=== PATIENT | female | born 1980 | race Caucasian/White ===

== ENCOUNTER 2022-08-06 07:14 | Day surgery (SDC) | payer BC ==
[2022-08-05 09:17] LABS: Absolute Lymphocytes (CBC) 1.5 K/uL (0.7-4.9); Hematocrit 39.6 % (36.0-45.0); Lymphocytes % 30.1 % (15.3-44.8); MCV 95.9 fL (80-100); MPV 7.4 fL (7.6-11.3); RBC Red Blood Cell Count 4.13 M/uL (3.86-4.86)
[2022-08-05 09:28] LABS: Potassium 4.1 mEq/L (3.5-5.1)
[2022-08-06] MEDS ORDERED: CEFAZOLIN SODIUM 1 GM/VIAL ONE (07:38)
[2022-08-06] MEDS: Ringers Lactate 1,000 ML IV ONE ×2 (07:45→08:00)
[2022-08-06] MEDS ORDERED: LIDOCAINE 2% MPF 5 ML VIAL ONE (08:09)
[2022-08-06] MEDS ORDERED: MIDAZOLAM HCL 2 MG/2 ML INJ ONE (08:09)
[2022-08-06] MEDS ORDERED: propofoL 200 MG/20 ML VIAL IV ONE (08:09)
[2022-08-06] MEDS ORDERED: FENTANYL CITR 100 MCG/2 ML ONE (08:09)
[2022-08-06] MEDS: BUPIVACAINE 0.5% PF 10 ML VIAL ONE ×2 (08:11→09:00)
[2022-08-06] MEDS ORDERED: ONDANSETRON 4 MG/2 ML VIAL ONE (08:11)
[2022-08-06] MEDS ORDERED: dexAMETHasone 4 MG/ML VIAL ONE (09:03)
--- NOTE | 2022-08-06 09:35 | P.OP ---
Date of Service: 08/06/22 Preop diagnosis: Chest wall mass Postop diagnosis: Inflamed chest wall mass Procedure performed: Wide excision chest wall mass 5 x 2 cm with layered closure Surgeon: Carlos Jimenez MD Clearance Representative: None Estimated blood loss: Minimal Specimen: Pus for C&S and cyst Findings: As above Anesthesia: General Complications: None Drains: None Fluids and blood products: Nonapplicable Disposition: Recovery room Operative note: Patient brought to the OR and placed in supine position. General anesthesia begun. Patient prepped and draped in the usual sterile fashion. Marcaine 0.5% apply locally for postop pain control. 15 blade used to make a 5 x 2 cm incision to include the punctum of the cyst. Subcutaneous tissue divided and the entire cyst excised in total and sent to pathology as specimen prior to the incision patient had some pus draining out of the punctum. The pus was cultured. Wound irrigated and bleeding controlled cautery. Flaps created. 2-0 chromic used to approximate subcutaneous tissue. And 4 nylon used to loosely close the skin. Sterile dressing applied. Patient awakened and taken to recovery room in good general condition. CC: Dr. Gonzalez'dinorah's office
[2022-08-06] MEDS: HYDROMORPHONE HCL 1 MG/ML INJ ONE ×2 (09:56→10:04)
[2022-08-06] MEDS ORDERED: TRAMADOL HCL 50 MG TAB PO PRN (10:00)
[2022-08-06 10:08] VITALS: O2SAT 100
[2022-08-06] MEDS ORDERED: TRAMADOL HCL 50 MG TAB ONE (10:36)
[2022-08-06 10:51] VITALS: BP 126/63; TEMP 97
== END 2022-08-06 11:25 | disposition home or self-care (01) ==
LOC: OR 07:14
PROVIDERS: ATTEND Surgery
PROC: 0WB80ZZ Excision of Chest Wall, Open Approach (ICD-10-PCS; principal; 2022-08-06 08:30)
DX: L72.0 Epidermal cyst (principal); J45.909 Unspecified asthma, uncomplicated; G35 Multiple sclerosis
CPT/HCPCS: 87070; 85025; 80048; 36415; 87205 ×2; 81025; 88304; 87075; 11406; J2704; J1100; J2001; J2250; J3010; J1170; J2405; J7120; J0690

== ENCOUNTER 2022-11-24 09:01 | Emergency (ER) | payer BC ==
[2022-11-24] MEDS ORDERED: IBUPROFEN 200 MG TAB PO ONE (10:09)
[2022-11-24] MEDS ORDERED: HYDROCODONE/APAP 10/325 TAB ONE (10:09)
[2022-11-24] MEDS ORDERED: IBUPROFEN 400 MG TAB ONE (10:10)
--- NOTE | 2022-11-24 10:33 | EDPHYS ---
Physician Documentation [facility] Name: Ashely Rodriguez Age: 42 yrs Sex: Female : 1980 Arrival Date: 11/24/2022 Time: 09:01 Bed 15 Private MD: ED Physician Rashad Jaramillo HPI: 11/24 09:59 This 42 yrs old Female presents to ER via Ambulatory with complaints of Fall gayathri Injury. 09:59 Details of fall: The patient fell from an upright position, while standing. Onset: The gayathri symptoms/episode began/occurred 1 day(s) ago. Associated injuries: The patient sustained anterior aspect of left shoulder, left bicep, left antecubital area, posterior aspect of left shoulder, left tricep and left elbow, decreased range of motion, painful injury. Severity of symptoms: At their worst the symptoms were moderate, in the emergency department the symptoms are unchanged. Historical: - Allergies: 09:30 Sulfa (Sulfonamide Antibiotics); mb9 09:30 caffeine; mb9 - Home Meds: 09:30 Vyvanse oral [Active]; mb9 - PMHx: 09:30 Multiple sclerosis; mb9 - Immunization history:: Adult Immunizations up to date. - Social history:: Smoking status: Patient denies any tobacco usage or history of. - Family history:: not pertinent. ROS: 09:59 Constitutional: Negative for fever, chills, and weight loss, Eyes: Negative for injury, gayathri pain, redness, and discharge, ENT: Negative for injury, pain, and discharge, Neck: Negative for injury, pain, and swelling, Cardiovascular: Negative for chest pain, palpitations, and edema, Respiratory: Negative for shortness of breath, cough, wheezing, and pleuritic chest pain, Abdomen/GI: Negative for abdominal pain, nausea, vomiting, diarrhea, and constipation, Back: Negative for injury and pain, : Negative for injury, bleeding, discharge, and swelling, Skin: Negative for injury, rash, and discoloration, Neuro: Negative for headache, weakness, numbness, tingling, and seizure, Psych: Negative for depression, anxiety, suicide ideation, homicidal ideation, and hallucinations, Allergy/Immunology: Negative for hives, rash, and allergies, Endocrine: Negative for neck swelling, polydipsia, polyuria, polyphagia, and marked weight changes, Hematologic/Lymphatic: Negative for swollen nodes, abnormal bleeding, and unusual bruising. 09:59 MS/extremity: Positive for abrasion, decreased range of motion, pain, tenderness, of the anterior aspect of left shoulder, left bicep, left antecubital area, posterior aspect of left shoulder, left tricep and left elbow. Exam: 09:59 Constitutional: This is a well developed, well nourished patient who is awake, alert, gayathri and in no acute distress. Head/Face: Normocephalic, atraumatic. Eyes: Pupils equal round and reactive to light, extra-ocular motions intact. Lids and lashes normal. Conjunctiva and sclera are non-icteric and not injected. Cornea within normal limits. Periorbital areas with no swelling, redness, or edema. ENT: Nares patent. No nasal discharge, no septal abnormalities noted. Tympanic membranes are normal and external auditory canals are clear. Oropharynx with no redness, swelling, or masses, exudates, or evidence of obstruction, uvula midline. Mucous membranes moist. Neck: Trachea midline, no thyromegaly or masses palpated, and no cervical lymphadenopathy. Supple, full range of motion without nuchal rigidity, or vertebral point tenderness. No Meningismus. Chest/axilla: Normal chest wall appearance and motion. Nontender with no deformity. No lesions are appreciated. Cardiovascular: Regular rate and rhythm with a normal S1 and S2. No gallops, murmurs, or rubs. Normal PMI, no JVD. No pulse deficits. Respiratory: Lungs have equal breath sounds bilaterally, clear to auscultation and percussion. No rales, rhonchi or wheezes noted. No increased work of breathing, no retractions or nasal flaring. Abdomen/GI: Soft, non-tender, with normal bowel sounds. No distension or tympany. No guarding or rebound. No evidence of tenderness throughout. Back: No spinal tenderness. No costovertebral tenderness. Full range of motion. Skin: Warm, dry with normal turgor. Normal color with no rashes, no lesions, and no evidence of cellulitis. Neuro: Awake and alert, GCS 15, oriented to person, place, time, and situation. Cranial nerves II-XII grossly intact. Motor strength 5/5 in all extremities. Sensory grossly intact. Cerebellar exam normal. Normal gait. Psych: Awake, alert, with orientation to person, place and time. Behavior, mood, and affect are within normal limits. 09:59 Musculoskeletal/extremity: Extremities: grossly normal except: noted in the anterior aspect of left shoulder, left bicep, left antecubital area, posterior aspect of left shoulder, left tricep and left elbow: contusion, decreased ROM, ROM: intact in all extremities, limited active range of motion, limited passive range of motion, limited active range of motion due to pain, limited passive range of motion due to pain, Circulation is intact in all extremities. Sensation intact. Compartment Syndrome exam of affected extremity: is normal. Vital Signs: 09:29 BP 139 / 89; Pulse 79; Resp 16; Temp 98; Pulse Ox 95% ; Weight 86.18 kg; Height 5 ft. 1 mb9 in. ; 11:08 BP 132 / 78; Pulse 74; Resp 16; Pulse Ox 99% ; ko1 09:29 Body Mass Index 35.90 (86.18 kg, 154.94 cm) 9 MDM: 09:04 Patient medically screened. [facility] 09:59 Differential diagnosis: contusion, fracture, multiple trauma, sprain, strain. Data [facility] reviewed: vital signs, nurses notes, radiologic studies, plain films. Consideration of Admission/Observation Escalation of care including admission/observation considered. I considered the following discharge prescriptions or medication management in the emergency department Medications were administered in the Emergency Department. See MAR. Test considered but Not performed: Labs: no labs. Care significantly affected by the following chronic conditions: MS. Counseling: I had a detailed discussion with the patient and/or guardian regarding: the historical points, exam findings, and any diagnostic results supporting the discharge/admit diagnosis, radiology results, the need for outpatient follow up, for definitive care, a family practitioner, a orthopedic surgeon. 11/24 09:56 Order name: Elbow Left 3 View XRAY [facility] 11/24 09:56 Order name: Humerus Left XRAY [facility] 11/24 09:56 Order name: Ice pack; Complete Time: 09:57 gayathri 11/24 10:18 Order name: Sling; Complete Time: 11:07 gayathri Administered Medications: 10:03 Drug: Ibuprofen PO 600 mg Route: PO; ko1 10:03 Drug: Nineveh PO 10 mg-325 mg 1 tabs Route: PO; ko1 Disposition Summary: 11/24/22 10:33 Discharge Ordered Location: Home [facility] Problem: new gayathri Symptoms: have improved gayathri Condition: Stable gayathri Diagnosis - Fall on same level, unspecified gayathri - Contusion of left elbow gayathri - Contusion of left shoulder gayathri Followup: gayathri - With: Private Physician - When: 2 - 3 days - Reason: Recheck today's complaints, Continuance of care, Re-evaluation by your physician Followup: gayathri - With: Sean Gaines MD - When: 2 - 3 days - Reason: Recheck today's complaints, Continuance of care, Re-evaluation by your physician Discharge Instructions: - Discharge Summary Sheet gayathri - Fall Prevention in the Home, Adult gayathri - RICE Therapy for Routine Care of Injuries gayathri - Elbow Contusion gayathri - RICE Therapy for Routine Care of Injuries, [id number] gayathri - Fall Prevention in the Home, Adult, [id number] gayathri - Elbow Contusion, [id number] gayathri Forms: - Medication Reconciliation Form [facility] - Thank You Letter gayathri - Antibiotic Education gayathri - Prescription Opioid Use gayathri - Patient Portal Instructions [facility] - Leadership Thank You Letter [facility] Prescriptions: - Diclofenac Sodium 75 mg Oral tablet,delayed release (DR/EC) - take 1 tablet by ORAL route 2 times per day; 20 tablet; Refills: 0, Product gayathri Selection Permitted Signatures: Dispatcher [employer] Rsahad Viveros MD MD cha Oliver, Kathy, RN RN ko1 Elisabet Eddy RN RN mb9 Corrections: (The following items were deleted from the chart) 09:31 09:30 Allergies: Caffeine-Sodium Benzoate; mb9 mb9
--- NOTE | 2022-11-24 10:33 | ER ---
Nurse's Notes [facility] Name: Ashely Rodriguez Age: 42 yrs Sex: Female : 1980 Arrival Date: 11/24/2022 Time: 09:01 Bed 15 Private MD: Diagnosis: Fall on same level, unspecified;Contusion of left elbow;Contusion of left shoulder Presentation: 11/24 09:29 Chief complaint: Patient states: MECHANICAL FALL LAST PM, NOW WITH LUE, LLE PAIN. mb9 Coronavirus screen: At this time, the client does not indicate any symptoms associated with coronavirus-19. Ebola Screen: No symptoms or risks identified at this time. Initial Sepsis Screen: Does the patient meet any 2 criteria? No. Patient's initial sepsis screen is negative. Does the patient have a suspected source of infection? No. Patient's initial sepsis screen is negative. Risk Assessment: Do you want to hurt yourself or someone else? Patient reports no desire to harm self or others. Onset of symptoms is unknown. 09:29 Method Of Arrival: Ambulatory mb9 09:29 Acuity: ION 3 mb9 Historical: - Allergies: 09:30 Sulfa (Sulfonamide Antibiotics); mb9 09:30 caffeine; mb9 - Home Meds: 09:30 Vyvanse oral [Active]; mb9 - PMHx: 09:30 Multiple sclerosis; mb9 - Immunization history:: Adult Immunizations up to date. - Social history:: Smoking status: Patient denies any tobacco usage or history of. - Family history:: not pertinent. Screenin:45 [facility] ED Fall Risk Assessment (Adult) History of falling in the last 3 months, ko1 including since admission Yes- single mechanical fall (1 pt) Confusion or Disorientation No (0 pts) Intoxicated or Sedated No (0 pts) Impaired Gait No (0 pts) Mobility Assist Device Used No (0 pt) Altered Elimination No (0 pt) Score/Fall Risk Level 0 - 2 = Low Risk Oriented to surroundings, Maintained a safe environment, Educated pt \T\ family on fall prevention, incl call for assistance when getting out of bed, Assessed \T\ reinforced patient's understanding of fall precautions, Provided non-skid footwear, Hourly rounding (assess needs \T\ fall precautionary measures) done, Used ambulatory aids as needed (educated on \T\ assisted with), Used gait belt as appropriate. Abuse screen: Denies threats or abuse. Denies injuries from another. Nutritional screening: No deficits noted. Tuberculosis screening: No symptoms or risk factors identified. Assessment: 09:45 General: Appears in no apparent distress. uncomfortable, Behavior is calm, cooperative, ko1 appropriate for age. Pain: Complains of pain in anterior aspect of left shoulder, left bicep, posterior aspect of left shoulder and left tricep, left hip and leg. Neuro: No deficits noted. Cardiovascular: No deficits noted. Respiratory: No deficits noted. GI: No deficits noted. : No deficits noted. EENT: No deficits noted. Derm: No deficits noted. Musculoskeletal: Reports pain in left upper arm and left leg. Vital Signs: 09:29 BP 139 / 89; Pulse 79; Resp 16; Temp 98; Pulse Ox 95% ; Weight 86.18 kg; Height 5 ft. 1 mb9 in. ; 11:08 BP 132 / 78; Pulse 74; Resp 16; Pulse Ox 99% ; ko1 09:29 Body Mass Index 35.90 (86.18 kg, 154.94 cm) 9 ED Course: 09:03 Patient arrived in ED. rg4 09:04 Rashad Jaramillo MD is Attending Physician. gayathri 09:30 Triage completed. mb9 09:36 Grazyna Flor, RN is Primary Nurse. ko1 09:45 Patient has correct armband on for positive identification. Bed in low position. Call ko1 light in reach. Side rails up X 1. Provided Education on: NA. Pulse ox on. NIBP on. Door closed. Noise minimized. Warm blanket given. 09:45 Patient placed in an exam room, on a stretcher, Patient notified of wait time. ko1 10:00 Affected limb iced. ko1 10:13 Elbow Left 3 View XRAY In Process Unspecified. EDMS 10:13 Humerus Left XRAY In Process Unspecified. EDMS 10:31 Sean Gaines MD is Referral Physician. gayathri 11:08 No provider procedures requiring assistance completed. Patient did not have IV access ko1 during this emergency room visit. Sling applied to left arm. 11:08 Wound care: ice pack applied. ko1 Administered Medications: 10:03 Drug: Ibuprofen PO 600 mg Route: PO; ko1 10:03 Drug: Lockridge PO 10 mg-325 mg 1 tabs Route: PO; ko1 Medication: 11:08 VIS not applicable for this client. ko1 Outcome: 10:33 Discharge ordered by . gayathri 11:08 Discharged to home ambulatory, with family. ko1 11:08 Condition: stable 11:08 Discharge instructions given to patient, family, Instructed on discharge instructions, follow up and referral plans. medication usage, Demonstrated understanding of instructions, follow-up care, medications, Prescriptions given X 1. 11:21 Patient left the ED. ko1 Signatures: Dispatcher [employer] [facility] Rashad Jaramillo MD MD cha Garcia, Rubi rg4 Grazyna Flor RN RN ko1 Elisabet Eddy RN RN mb9 Corrections: (The following items were deleted from the chart) 09:31 09:30 Allergies: Caffeine-Sodium Benzoate; [email or web address] mb9
--- NOTE | 2022-11-24 11:00 | RAD REPORT ---
EXAM DESCRIPTION: RAD - Humerus Left - 11/24/2022 10:12 am CLINICAL HISTORY: PAIN COMPARISON: No comparisons TECHNIQUE: Left Humerus, 3 views. FINDINGS: No fracture is identified. There is no dislocation or periosteal reaction noted. No forei gn body or other soft tissue abnormality. IMPRESSION: Negative left humerus examination.
--- NOTE | 2022-11-24 11:01 | RAD REPORT ---
EXAM DESCRIPTION: RAD - Elbow Left 3 View - 11/24/2022 10:12 am CLINICAL HISTORY: PAIN COMPARISON: No comparisons TECHNIQUE: Left elbow, 3 views. FINDINGS: No fracture is identified. No elevated posterior fat pad to suggest an effusion. There is no dislocation or periosteal reaction noted. No foreign body or other soft tissue abnormalit y. IMPRESSION: Negative left elbow examination.
[2022-11-24 11:25] VITALS: TEMP 98
[2022-11-24 11:26] VITALS: BP 132/78; O2SAT 99
== END 2022-11-24 11:21 | disposition home or self-care (01) ==
LOC: ER 09:01
DX: S40.012A Contusion of left shoulder, initial encounter (principal); S50.02XA Contusion of left elbow, initial encounter; W18.30XA Fall on same level, unspecified, initial encounter; Z88.2 Allergy status to sulfonamides; Z91.018 Allergy to other foods

== ENCOUNTER 2023-03-08 07:10 | Day surgery (SDC) | payer BC ==
[2023-02-24 11:11] LABS: Absolute Lymphocytes (CBC) 1.5 K/uL (0.7-4.9); Hematocrit 41.7 % (36.0-45.0); Lymphocytes % 22.8 % (15.3-44.8); MCV 98.1 fL (80-100); MPV 7.8 fL (7.6-11.3); Platelets 283 thou/uL (152-406); RBC Red Blood Cell Count 4.26 M/uL (3.86-4.86)
[2023-02-24 11:17] LABS: Protime INR 0.99
--- NOTE | 2023-02-24 11:38 | RAD REPORT ---
EXAM DESCRIPTION: RAD - Chest Pa And Lat (2 Views) - 02/24/2023 11:12 am CLINICAL HISTORY: pre op pending ureteroscopy, laser litho, stent pl COMPARISON: Abdomen 1 View (KUB) dated 05/21/2021 FINDINGS: Lines: None. Lungs: No evidence of edema or pneumonia. Pleural: No significant pleural effusions or pneumothorax. Cardiac: The heart size is within normal limits. Mediastinum: Within normal limits. Bones: No acute fractures. Other: None IMPRESSION: No acute cardiopulmonary disease.
--- NOTE | 2023-02-25 14:25 | EKG ---
Test Date: 2023-02-24 Test Time: 11:39:21 Creative Writing Teacher: CG MEASUREMENT RESULTS: Intervals: Rate: 73 AK: 138 QRSD: 80 QT: 398 QTc: 438 Ortley: P: 53 AK: 138 QRS: 62 T: 60 INTERPRETIVE STATEMENTS: Normal sinus rhythm with sinus arrhythmia Possible Left atrial enlargement Borderline ECG No previous ECG available for comparison Electronically Signed On 02-25-23 14:22:29 MANAGER MATH by Troy Easton
[2023-03-08] MEDS ORDERED: Ringers Lactate 1,000 ML IV ONE (07:32)
[2023-03-08] MEDS ORDERED: AMPICILLIN SODIUM 2 GM/VIAL VIAL ONE (07:53)
[2023-03-08] MEDS ORDERED: LIDOCAINE 1% MPF 5 ML VIAL ONE (07:55)
[2023-03-08] MEDS ORDERED: propofoL 200 MG/20 ML VIAL IV ONE (07:55)
[2023-03-08] MEDS ORDERED: FENTANYL CITR 100 MCG/2 ML ONE (07:55)
[2023-03-08] MEDS ORDERED: MIDAZOLAM HCL 2 MG/2 ML INJ ONE (07:56)
[2023-03-08] MEDS ORDERED: ONDANSETRON 4 MG/2 ML VIAL ONE (07:59)
[2023-03-08] MEDS ORDERED: dexAMETHasone 10 MG/ML VIAL ONE (07:59)
[2023-03-08] MEDS ORDERED: Gentamicin Inj 200 MG in NA CHLORIDE 0.9% 100 ML IVPB ONE (08:00)
[2023-03-08 08:20] LABS: Urine Specific Gravity/Preg 1.025 (1.005-1.030)
--- NOTE | 2023-03-08 08:48 | P.OP ---
Date of Service: 03/08/23 Preoperative diagnoses: UTI persistent/recurrent UTI Right nephrolithiasis Postoperative diagnoses: UTI persistent/recurrent UTI Right nephrolithiasis Ureteral spasm Principal procedures: Cystoscopy Right retrograde pyelography Right distal ureteroscopy Right ureteral stent placement Findings: Radiolucent calculi within the right kidney. Area of dense stenosis in the distal right ureter. Significant ureteral spasm Indication for procedure: This is a 43-year-old woman who presented to the urology clinic with irritative LUTS's largely secondary to her underlying multiple sclerosis, but also with recurrent urinary tract infections with the same organism and same pattern of sensitivities refractory to multiple attempts at definitive antimicrobial therapy, now requiring chronic suppressive therapy with small volume right-sided nephrolithiasis identified on CT, 3 stones, 5 to 6 mm in maximal diameter per stone, potentially the source of the infection persistence. Procedure note: The patient was consented in the preoperative holding area before being transferred to the operative suite where general anesthesia was induced. She was given ampicillin 2 g and gentamicin 200 mg IV antimicrobial prophylaxis, and pneumoboots were provided for DVT prophylaxis. She was placed in the lithotomy position, padded and secured to the table appropriately. Her genitalia was prepped with Hibiclens and she was draped in standard fashion. The case was begun using a 22 Beninese rigid cystoscope to traverse the urethra and into the b ladder with ease. The bladder was decompressed of fluid and urine and then surveyed in its entirety after refilling with sterile saline. There were no papillary mucosal lesions, foreign bodies or stones were noted throughout. The ureteral orifices were orthotopic in location bilaterally. 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 There was clear E flux of urine from the right ureteral orifice. As a result, I cannulated the right ureteral orifice using a 5 Beninese ureteral access catheter. Right retrograde pyelography: Using a 70: 30 mixture of Omnipaque and saline, contrast was injected via the lumen of the 5 Beninese ureteral catheter and did propagate up the distal into the mid and proximal ureter with no evidence of dilation of the ureter/ureteral nephrosis, and then the contrast into the renal pelvis and calyces without significant pelviectasis or caliectasis noted. No radiopaque calculi were visible, and no significant filling defects were identified. As a result, I passed a sensor wire via the 5 Beninese ureteral access catheter and up the distal into the mid and proximal ureter where the wire coiled in the upper pole collecting system on the right. I then removed the 5 Beninese ureteral access catheter and substituted it with a dual-lumen catheter. Unfortunately, I was unable to pass the dual-lumen catheter more than a few centimeters into the distal ureter before it reached a point of obstruction and would pass no further. As a result, I again injected contrast via the second lumen of the dual-lumen catheter to confirm the appropriate intraluminal location of the wire and catheter, and contrast did propagate up the second lumen of the dual-lumen catheter and up the ureter and into the kidney. As a result, I passed a Bentson guidewire via the second lumen of the dual-lumen catheter and attempted to use the 2 wires as a railroad track bridge to try to dilate and navigate the dual- lumen catheter up beyond the point of obstruction in the distal ureter. However, despite my attempts, the dual-lumen catheter would not pass beyond that point of obstruction. Semirigid distal ureteroscopy: As a result, I removed the dual-lumen catheter leaving the wires in place, and I attempted to use the 2 wires again as railroad tracks to navigate the semirigid ureteroscope into the distal ureter. I was able to navigate the semirigid ureteroscope under direct vision via the urethra into her bladder and into the ureteral orifice. With the wires on each side of the semirigid ureteroscope, I navigated the scope to do to 3 cm into the distal ureter until it reached a point of stenosis observed. No particular mucosal lesion was noted, and there was no definitive annular stricture noted. The region was simply highly stenotic. As a result, I removed the Bentson guidewire and passed it through the semirigid ureteroscope and attempted to pass the semirigid ureteroscope over the wire beyond the point of obstruction. With some gentle pressure, I was able to successfully navigate the semirigid ureteroscope beyond the point of distal ureteral obstruction, but immediately proximal to that, the ureter did spasm significantly and remained spasmed shut despite pressurized fluid irrigation. As a result, I concluded that further attempts at ureteroscopy would only risk ureteral injury; so I removed the semirigid ureteroscope and the associated Bentson guidewire. I then backloaded the cystoscope over the safety wire, and I passed a 6 Beninese by 26 cm double-J ureteral stent with a coil observed fluoroscopically in the upper pole of the right kidney and 1 cystoscopically formed in her bladder. I then decompressed her bladder of fluid and urine before taking the patient out of the lithotomy position. She was then awakened from general anesthesia, transferred to a stretcher, and then transferred to the recovery room in good condition. Complications: None Discharge disposition: She will require repeat operative excursion for right-sided ureteroscopy with pyeloscopy and laser lithotripsy with stent exchange, which may be scheduled at the first next available within the next few weeks. I have already discussed with her the potential that we may be unable to successfully perform definitive ureteroscopic management of her stones today; and if so, this would require repeat operative evaluation and management. In the meantime however, we will have her continue with daily prophylactic antimicrobial therapy based on the sensitivities of the organism, which will likely continue to be the Keflex 500 mg p.o. twice daily. Findings and Operative Technique
[2023-03-08] MEDS ORDERED: TRAMADOL 37.5mg/APAP 325mg PER TAB PO ONE ×2 (08:59→09:25)
--- NOTE | 2023-03-08 09:10 | RAD REPORT ---
EXAM DESCRIPTION: RAD - Urethrocystogrphy Retrograde - 03/08/2023 8:48 am CLINICAL HISTORY: RT STENT PLCMNT COMPARISON: None available. FINDINGS: Thirteen Images were sent to PACS, documenting fluoroscopic utilization during the right u reteral stent placement. No radiologist was available for the procedure, nor will any image interpret ation he provided. Please refer to the procedural report for additional details. Fluoroscopy time: 0.21 minutes. IMPRESSION: Documentation of fluoroscopy utilization as above.
[2023-03-08] MEDS ORDERED: TRAMADOL 37.5mg/APAP 325mg PER TAB ONE (09:40)
[2023-03-08] MEDS ORDERED: PHENAZOPYRIDINE 100MG TAB PO ONE ×2 (09:50→10:04)
[2023-03-08] MEDS ORDERED: KETOROLAC 30 MG/ML INJ IV ONE (10:35)
[2023-03-08] MEDS ORDERED: KETOROLAC 30 MG/ML INJ ONE (10:43)
[2023-03-08 10:47] VITALS: TEMP 96.3; O2SAT 100
[2023-03-08 13:03] VITALS: BP 112/81
== END 2023-03-08 11:11 | disposition home or self-care (01) ==
LOC: OR 07:10
PROVIDERS: ATTEND Urology
PROC: 0WHR8YZ Insertion of Other Device into Genitourinary Tract, Via Natural or Artificial Opening Endoscopic (ICD-10-PCS; principal; 2023-03-08 09:15)
DX: N20.0 Calculus of kidney (principal); N39.0 Urinary tract infection, site not specified; N13.5 Crossing vessel and stricture of ureter without hydronephrosis; N32.81 Overactive bladder; G35 Multiple sclerosis; Z88.2 Allergy status to sulfonamides; Z88.5 Allergy status to narcotic agent; Z91.040 Latex allergy status; Z83.3 Family history of diabetes mellitus; Z82.49 Family history of ischemic heart disease and other diseases of the circulatory system
CPT/HCPCS: 93005; 87088; 85025; 87086; 80048; 36415; 81025; 85610; 87077; 87186; 71046; 74450; 51610; 52351; 52332; J2704; J2001; J1580; J2250; J3010; J1100; J2405; J0290; J7120

== ENCOUNTER 2023-03-08 20:32 | Observation (INO) | payer BC ==
[2023-03-08] MEDS ORDERED: KETOROLAC 30 MG/ML INJ ONE (21:32)
[2023-03-08] MEDS ORDERED: MORPHINE 4 MG/ML SYR ONE (21:32)
[2023-03-08] MEDS ORDERED: ONDANSETRON 4 MG/2 ML VIAL ONE (21:33)
[2023-03-08 21:40] LABS: Absolute Lymphocytes (CBC) 0.5 K/uL (0.7-4.9); Hematocrit 42.4 % (36.0-45.0); Lymphocytes % 2.6 % (15.3-44.8); MCV 98.3 fL (80-100); MPV 7.8 fL (7.6-11.3); Platelets 363 thou/uL (152-406); RBC Red Blood Cell Count 4.32 M/uL (3.86-4.86)
[2023-03-08 21:51] LABS: Bilirubin Total 0.3 mg/dL (0.2-1.0); Potassium 4.4 mEq/L (3.5-5.1); Protein, Total 7.8 g/dL (6.4-8.2)
[2023-03-08 23:24] LABS: Blood Morphology Comment NOT SEEN (NOT SEEN); Platelet Estimate ADEQ
--- NOTE | 2023-03-08 23:24 | ER ---
Nurse's Notes [facility] Name: Ashely Rodriguez Age: 43 yrs Sex: Female : 1980 Arrival Date: 03/08/2023 Time: 20:32 Bed 6 Private MD: Diagnosis: Intractable right flank pain status post ureteral stent placement Presentation: 03/08 21:04 Chief complaint: Patient states: Had a right renal stent placed this morning around vc1 [address] Reece and has been in constant pain ever since. Every time I stand up I start dry heaving I feel like I need to pee every few seconds and it is only a little that comes out. Coronavirus screen: Vaccine status: Patient reports being unvaccinated. Client denies travel out of the [place] in the last 14 days. At this time, the client does not indicate any symptoms associated with coronavirus-19. Ebola Screen: Patient negative for fever greater than or equal to 101.5 degrees Fahrenheit, and additional compatible Ebola Virus Disease symptoms Patient denies exposure to infectious person. Patient denies travel to an Ebola-affected area in the 21 days before illness onset. No symptoms or risks identified at this time. Initial Sepsis Screen: Does the patient meet any 2 criteria? No. Patient's initial sepsis screen is negative. Does the patient have a suspected source of infection? Yes: Skin breakdown/wound. Risk Assessment: Do you want to hurt yourself or someone else? Patient reports no desire to harm self or others. Onset of symptoms was March 08, 2023. 21:04 Method Of Arrival: Ambulatory vc1 21:04 Acuity: ION 3 vc1 Triage Assessment: 21:08 General: Appears distressed, uncomfortable, Behavior is cooperative, restless. Pain: vc1 Complains of pain in right low back Pain radiates to right lower quadrant Pain currently is 10 out of 10 on a pain scale. Quality of pain is described as sharp, Pain began suddenly, after surgery Is continuous, Noted to be grimacing, restless. EENT: No deficits noted. No signs and/or symptoms were reported regarding the EENT system. Neuro: Level of Consciousness is awake, alert, obeys commands, Oriented to person, place, time, situation, Appropriate for age. Cardiovascular: No deficits noted. Respiratory: Airway is patent Respiratory effort is even, unlabored, Respiratory pattern is regular, symmetrical. GI: Reports lower abdominal pain, nausea. : Reports urinary frequency. : Reports blood in urine. Derm: No deficits noted. No signs and/or symptoms reported regarding the dermatologic system. Musculoskeletal: No deficits noted. No signs and/or symptoms reported regarding the musculoskeletal system. 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 Flu vaccine is not up to date. - Social history:: Smoking status: Reported history of juuling and/or vaping. - Family history:: not pertinent. Screenin:11 [facility] ED Fall Risk Assessment (Adult) History of falling in the last 3 months, vc1 including since admission No falls in past 3 months (0 pts) Confusion or Disorientation No (0 pts) Intoxicated or Sedated No (0 pts) Impaired Gait No (0 pts) Mobility Assist Device Used No (0 pt) Altered Elimination Yes (1 pt) Score/Fall Risk Level 0 - 2 = Low Risk Oriented to surroundings, Maintained a safe environment, Educated pt \T\ family on fall prevention, incl call for assistance when getting out of bed. Abuse screen: Denies threats or abuse. Nutritional screening: No deficits noted. Tuberculosis screening: No symptoms or risk factors identified. Assessment: 22:30 Reassessment: Patient and/or family updated on plan of care and expected duration. Pain vc1 level reassessed. Patient is alert, oriented x 3, equal unlabored respirations, skin warm/dry/pink. Patient states symptoms have improved. 22:30 GI: Bowel sounds present X 4 quads. Abd is soft Abdomen is tender to palpation. vc1 03/09 00:04 Reassessment: No changes from previously documented assessment. Patient and/or family vc1 updated on plan of care and expected duration. Pain level reassessed. Patient is alert, oriented x 3, equal unlabored respirations, skin warm/dry/pink. Pain: Complains of pain in right lower quadrant and right low back Pain currently is 10 out of 10 on a pain scale. Vital Signs: 03/08 21:01 BP 126 / 75; Pulse 55; Resp 18; Temp 97.4(O); Pulse Ox 97% on R/A; Weight 89.81 kg; oe Height 5 ft. 1 in. ; 22:30 BP 121 / 58; Pulse 50; Resp 18; Pulse Ox 100% ; vc1 21:01 Body Mass Index 37.41 (89.81 kg, 154.94 cm) oe ED Course: 20:40 Patient arrived in ED. gm2 20:49 Jerry Wei MD is Attending Physician. rt 20:49 Jhoan Zarate, RICARDO is Primary Nurse. bp 21:07 Triage completed. vc1 21:08 Arm band placed on right wrist. vc1 21:12 Patient has correct armband on for positive identification. Bed in low position. Call vc1 light in reach. Pulse ox on. NIBP on. 21:29 Inserted saline lock: 20 gauge in right antecubital area, using aseptic technique. oe Blood collected. 23:23 Poli Gil MD is Hospitalizing Provider. rt 03/09 02:00 No provider procedures requiring assistance completed. Patient admitted, IV remains in vc1 place. 05:11 Provided Education on: rachel wolfe. vc1 Administered Medications: 03/08 21:45 Drug: morphine IVP or IV 4 mg IVP once over 4 mins Route: IVP; Infused Over: 4 mins; vc1 Site: right antecubital; 22:15 Follow up: Response: No adverse reaction; Marked relief of symptoms vc1 21:46 Drug: Ondansetron IVP 4 mg IVP once; over 2 minutes Route: IVP; Site: right antecubital;vc1 22:15 Follow up: Response: No adverse reaction; Marked relief of symptoms vc1 21:46 Drug: Ketorolac IVP 30 mg IVP once Route: IVP; Site: right antecubital; vc1 22:15 Follow up: Response: No adverse reaction; Marked relief of symptoms; Pain is decreased vc1 23:52 Drug: morphine IVP or IV 4 mg IVP once over 4 mins Route: IVP; Infused Over: 4 mins; vc1 Site: right antecubital; 03/09 00:30 Follow up: Response: No adverse reaction; Marked relief of symptoms; Pain is decreased vc1 00:38 Drug: Rocephin - Rocephin (cefTRIAXone) IVPB 2 grams IVPB once over 30 mins; (mix in vc1 100 mL NS) Route: IVPB; Infused Over: 30 mins; Site: right antecubital; 01:00 Follow up: Response: No adverse reaction vc1 01:00 Follow up: IV Status: Completed infusion; IV Intake: 100ml vc1 04:24 Drug: morphine IVP or IV 4 mg IVP once over 4 mins Route: IVP; Infused Over: 4 mins; vc1 Site: right antecubital; 04:24 Follow up: Response: Pt switched to ER hold vc1 Medication: 03/08 21:12 VIS not applicable for this client. vc1 Intake: 03/09 01:00 IV: 100ml; Total: 100ml. vc1 Outcome: 03/08 23:23 Decision to Hospitalize by Provider. rt 03/09 02:00 Admitted to ER Hold. [facility]. vc1 Condition: good Instructed on the need for admit, 16:29 Patient left the ED. mb9 Signatures: Brock Lechuga Brian RN RN bp Juhi Harrington RN RN vc1 Elisabet Eddy RN RN mb9 Jerry Wei MD MD rt Lanie Denis 2
--- NOTE | 2023-03-08 23:24 | EDPHYS ---
Physician Documentation [facility] Name: Ashely Rodriguez Age: 43 yrs Sex: Female : 1980 Arrival Date: 03/08/2023 Time: 20:32 Bed 6 Private MD: ED Physician Jerry Wei HPI: 03/08 22:09 This 43 yrs old Female presents to ER via Ambulatory with complaints of Abdominal Pain, rt post surgery stent placed and in pain and vomiting. 22:09 Patient had a ureteroscopy done today, was unable to remove the stones, a stent was rt placed. Since the surgery, patient has had significant right flank pain rating to the right lower quadrant with nausea and vomiting unrelieved with medications that were prescribed. Denies other acute complaints at this time, does report subjective fever, sweats. Symptoms are severe in severity, no other aggravating or alleviating factors.. 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 Flu vaccine is not up to date. - Social history:: Smoking status: Reported history of juuling and/or vaping. - Family history:: not pertinent. ROS: 22:09 Cardiovascular: Negative for chest pain, palpitations, and edema, Respiratory: Negative rt for shortness of breath, cough, wheezing, and pleuritic chest pain, MS/Extremity: Negative for injury and deformity, Neuro: Negative for headache, weakness, numbness, tingling, and seizure, Psych: Negative for depression, anxiety, suicide ideation, homicidal ideation, and hallucinations, 22:09 Constitutional: Positive for Subjective fever, chills, 22:09 Abdomen/GI: Positive for nausea, vomiting, 22:09 Back: Positive for flank pain, Negative for injury or acute deformity, Exam: 22:09 Constitutional: This is a well developed, well nourished patient who is awake, alert, rt and in no acute distress. Head/Face: Normocephalic, atraumatic. Chest/axilla: Normal chest wall appearance and motion. Nontender with no deformity. No lesions are appreciated. Cardiovascular: Regular rate and rhythm with a normal S1 and S2. No gallops, murmurs, or rubs. Normal PMI, no JVD. No pulse deficits. Respiratory: Lungs have equal breath sounds bilaterally, clear to auscultation and percussion. No rales, rhonchi or wheezes noted. No increased work of breathing, no retractions or nasal flaring. Skin: Warm, dry with normal turgor. Normal color with no rashes, no lesions, and no evidence of cellulitis. MS/ Extremity: Pulses equal, no cyanosis. Neurovascular intact. Full, normal range of motion. Neuro: Awake and alert, GCS 15, oriented to person, place, time, and situation. Cranial nerves II-XII grossly intact. Motor strength 5/5 in all extremities. Sensory grossly intact. Cerebellar exam normal. Normal gait. Psych: Awake, alert, with orientation to person, place and time. Behavior, mood, and affect are within normal limits. 22:09 Abdomen/GI: Tenderness to the right lower quadrant, right CVAT., Vital Signs: 21:01 BP 126 / 75; Pulse 55; Resp 18; Temp 97.4(O); Pulse Ox 97% on R/A; Weight 89.81 kg; oe Height 5 ft. 1 in. ; 22:30 BP 121 / 58; Pulse 50; Resp 18; Pulse Ox 100% ; vc1 21:01 Body Mass Index 37.41 (89.81 kg, 154.94 cm) oe MDM: 20:50 Patient medically screened. rt 23:23 Differential Diagnosis Postoperative pain, pyelonephritis. Data reviewed: vital signs, rt nurses notes, lab test result(s). Management of patient was discussed with the following: Seo Assistant: Discussed with the patient's urologist, states that if the pain is adequately controlled, may follow-up as an outpatient, otherwise, may admit to the hospital for further treatment.. I considered the following discharge prescriptions or medication management in the emergency department Medications were administered in the Emergency Department. See MAR. Test considered but Not performed: CT: Low suspicion clinically for postoperative complication, do not believe a CT scan is indicated. Counseling: I had a detailed discussion with the patient and/or guardian regarding the historical points, exam findings, and any diagnostic results supporting the discharge/admit diagnosis, lab results, the need for further work-up and treatment in the hospital. Response to treatment: the patient's symptoms have mildly improved after treatment. 03/08 21:00 Order name: CBC with Diff; Complete Time: 23:24 rt 03/08 21:00 Order name: CMP; Complete Time: 22:38 rt 03/08 21:48 Order name: Manual Differential; Complete Time: 23:24 EDMS 03/09 13:13 Order name: CT EDMS Administered Medications: 21:45 Drug: morphine IVP or IV 4 mg IVP once over 4 mins Route: IVP; Infused Over: 4 mins; vc1 Site: right antecubital; 22:15 Follow up: Response: No adverse reaction; Marked relief of symptoms vc1 21:46 Drug: Ondansetron IVP 4 mg IVP once; over 2 minutes Route: IVP; Site: right antecubital;vc1 22:15 Follow up: Response: No adverse reaction; Marked relief of symptoms vc1 21:46 Drug: Ketorolac IVP 30 mg IVP once Route: IVP; Site: right antecubital; vc1 22:15 Follow up: Response: No adverse reaction; Marked relief of symptoms; Pain is decreased vc1 23:52 Drug: morphine IVP or IV 4 mg IVP once over 4 mins Route: IVP; Infused Over: 4 mins; vc1 Site: right antecubital; 03/09 00:30 Follow up: Response: No adverse reaction; Marked relief of symptoms; Pain is decreased vc1 00:38 Drug: Rocephin - Rocephin (cefTRIAXone) IVPB 2 grams IVPB once over 30 mins; (mix in vc1 100 mL NS) Route: IVPB; Infused Over: 30 mins; Site: right antecubital; 01:00 Follow up: Response: No adverse reaction vc1 01:00 Follow up: IV Status: Completed infusion; IV Intake: 100ml vc1 04:24 Drug: morphine IVP or IV 4 mg IVP once over 4 mins Route: IVP; Infused Over: 4 mins; vc1 Site: right antecubital; 04:24 Follow up: Response: Pt switched to ER hold vc1 Disposition Summary: 03/08/23 23:23 Hospitalization Ordered Notes: Hospitalization Status: Observation rt Provider: Poli Gil rt Condition: Stable rt Problem: new rt Symptoms: have improved rt Bed/Room Type: Standard rt Location: [facility] ER HOLD(03/09/23 01:56) lg3 Room Assignment: ERHOLD-(03/09/23 01:56) lg3 Diagnosis - Intractable right flank pain status post ureteral stent placement rt Forms: - Medication Reconciliation Form rt - SBAR form rt - Leadership Thank You Letter rt Signatures: Dispatcher [employer] Melani Gupta, RN RN lg3 Juhi Harrington RN RN vc1 Jerry Wei MD MD rt Corrections: (The following items were deleted from the chart) 01:56 03/08 23:23 Telemetry/MedSurg (observation) rt lg3 03/09 01:56 03/08 23:23 rt lg3
[2023-03-09] MEDS ORDERED: MORPHINE 4 MG/ML SYR ONE ×2 (00:02→04:32)
[2023-03-09] MEDS ORDERED: CEFTRIAXONE 2000 MG/VIAL ONE (00:23)
[2023-03-09] MEDS ORDERED: NA CHLORIDE 0.9% 100 ML ONE (00:23)
[2023-03-09] MEDS ORDERED: ACETAMINOPHEN 325 MG TABLET PO PRN (02:25)
[2023-03-09] MEDS ORDERED: ONDANSETRON 4 MG/2 ML VIAL IV PRN (02:25)
--- NOTE | 2023-03-09 02:32 | P.HP ---
Certification for Inpatient Patient admitted to: Observation With expected LOS: <2 Midnights Practitioner: I am a practitioner with admitting privileges, knowledge of patient current condition, hospital course, and medical plan of care. Services: Services provided to patient in accordance with Admission requirements found in Title 42 Section 412.3 of the Code of Federal Regulations Patient History Date of Service: 03/09/23 Reason for admission: Abdominal pain post indwelling stent placement. History of Present Illness: 43-year-old female patient with medical history significant for ADHD who had recent intervention with placement of indwelling stent by urologist Dr. Long. She came back to the hospital complaining of abdominal pain and feeling sick. She denied overt episode of bloody urination, but she did have nausea/vomiting episode. She was worked up in the ED and was admitted for inpatient care secondary to possible complication of postoperative state. Allergies caffeine Allergy (Severe, Verified 03/08/23 07:36) migraine headache latex Allergy (Verified 03/08/23 07:36) Rash Sulfa (Sulfonamide Antibiotics) Allergy (Verified 03/08/23 07:36) Hives codeine Adverse Reaction (Verified 03/08/23 07:36) Nausea/Vomiting Home Medications: Dimethyl Fumarate [Tecfidera] 240 mg PO BID 08/05/22 Lisdexamfetamine Dimesylate [Vyvanse] 20 mg PO DAILY 08/05/22 Mirabegron [Myrbetriq] 50 mg PO DAILY 08/05/22 Montelukast [Singulair*] 10 mg PO DAILY 08/05/22 Cephalexin [Keflex*] 500 mg PO Q12H #60 cap 03/08/23 Tramadol HCl/Acetaminophen [Tramadol-Acetaminophn 37.5-325] 50 mg PO Q8H PRN 03/09/23 Review of Systems General: Unremarkable Eyes: Unremarkable ENT: Unremarkable Respiratory: Unremarkable Cardiovascular: Unremarkable Gastrointestinal: Nausea, Vomiting, Abdominal Pain Genitourinary: Unremarkable Musculoskeletal: Unremarkable Integumentary: Unremarkable Neurological: Unremarkable Physical Examination - Physical Exam General: Alert, Oriented x3 HEENT: Atraumatic Neck: Supple Respiratory: Normal air movement Cardiovascular: Regular rate/rhythm, Normal S1 S2 Gastrointestinal: Soft and benign Musculoskeletal: No swelling Neurological: Normal speech, Normal strength at 5/5 x4 extr - Studies Laboratory Data (last 24 hrs) 03/08/23 03/08/23 21:26 21:26 WBC 19.10 H Hgb 14.2 Hct 42.4 Plt Count 363 Sodium 134 L Potassium 4.4 BUN 14 Creatinine 0.73 Glucose 177 H Total Bilirubin 0.3 AST 63 H ALT 121 H Alkaline Phosphatase 49 Assessment and Plan - Plan Abdominal pain/post indwelling stent placement for kidney stone: Patient has persistent pain at this concerns. As needed pain control with morphine to be used. Empiric antibiotic therapy with Rocephin started pending further review since she has leukocytosis. Will keep n.p.o. in event of possible surgical intervention by urologist. Will continue IV hydration. Prophylaxis: Lovenox for DVT prophylaxis CODE STATUS: Full code Disposition: Pending urology evaluation. - Advance Directives Does patient have a Living Will: No Does patient have a Durable POA for Healthcare: No
[2023-03-09] MEDS ORDERED: NA CHLORIDE 0.9% 1,000 ML IV SCH (03:00)
[2023-03-09 04:00] VITALS: BMI 37.4
[2023-03-09 04:09] VITALS: TEMP 98.4
[2023-03-09] MEDS ORDERED: NA CHLORIDE 0.9% 1,000 ML ONE (04:32)
[2023-03-09] MEDS ORDERED: MORPHINE 2 MG/ML SYR IV PRN (05:54)
[2023-03-09] MEDS ORDERED: CEFTRIAXONE 1,000 MG in NA CHLORIDE 0.9% 50 ML IVPB SCH (09:00)
[2023-03-09] MEDS ORDERED: ENOXAPARIN 40 MG/0.4 ML SQ SCH (09:00)
[2023-03-09] MEDS ORDERED: CEFTRIAXONE 1000 MG/VIAL ONE (09:52)
[2023-03-09] MEDS ORDERED: ENOXAPARIN 40 MG/0.4 ML SQ ONE (09:52)
[2023-03-09] MEDS ORDERED: NA CHLORIDE 0.9% 50 ML ONE (09:52)
--- NOTE | 2023-03-09 13:12 | RAD REPORT ---
EXAM DESCRIPTION: CT - Abdomen Pelvis Wo Contrast - 03/09/2023 12:40 pm CLINICAL HISTORY: Flank pain s/p ureteral stent COMPARISON: Abdomen Pelvis Wo Contrast dated 04/09/2022 TECHNIQUE: Thin cut axial CT imaging of the abdomen and pelvis was performed without IV contrast. Mu ltiplanar reformats were generated and reviewed. All CT scans are performed using dose optimization technique as appropriate and may include automated exposure control or mA/KV adjustment according to patient size. FINDINGS: No suspicious findings in the lung bases apart from bibasilar segmental atelectatic change s. The liver demonstrates parenchymal hypoattenuation, with geographic right lobe region of relatively i ncreased density suggestive of fatty sparing. Adrenal glands, spleen, and pancreas show no suspicious findings. Gallbladder and biliary tree are also without suspicious finding. Symmetric renal contour, without suspicious parenchymal findings within limits of noncontrast techniq ue. Right ureteral stent in place. Two small calculi in the right lower renal pole largest measuring 4 millimeter. No evidence of hydroureteronephrosis. No dilated bowel loops or bowel wall thickening. Colonic diverticulosis. No free air, free fluid or i nflammatory stranding. No hernia, mass or bulky lymphadenopathy. The urinary bladder is partially dec ompressed limiting evaluation. Tubal occlusion devices in place. No suspicious bony findings. IMPRESSION: No acute intra-abdominal process. Right ureteral stent in satisfactory position. Small calculi at the right lower renal pole largest me asuring 4 millimeter. No hydroureteronephrosis. Other stable findings as above.
[2023-03-09] MEDS ORDERED: MORPHINE 2 MG/ML SYR ONE (13:21)
[2023-03-09] MEDS ORDERED: ACETAMINOPHEN 325 MG TABLET ONE (13:30)
--- NOTE | 2023-03-09 13:38 | P.DS ---
Admission Date: 03/09/23 Discharge Date: 03/09/23 Disposition: ROUTINE DISCHARGE Discharge Condition: FAIR Reason for Admission: Abdominal pain post indwelling stent placement. - Problems (1) Status post placement of ureteral stent Current Visit: Yes Status: Acute (2) Recurrent UTI Current Visit: No Status: Acute (3) Right nephrolithiasis Current Visit: No Status: Acute (4) ureteral spasm Current Visit: No Status: Acute Brief History of Present Illness: 43-year-old female patient with medical history significant for ADHD who had ureteral stent placement done yesterday by urologist Dr. Long. She came back to the hospital complaining of abdominal pain and feeling sick. She denied any hematuira but she did have nausea/vomiting episode. She was worked up in the ED and was admitted for inpatient care secondary to possible complication of postoperative state. Hospital Course: Patient was placed under observation on the medical floor. Her previous urine culture grew Klebsiella pneumonia and patient was taking Keflex at home. She was given a dose of IV Rocephin. Her pain improved with IV morphine. Case discussed with Dr. Reece urology who recommended no further intervention as her pain could be due to her hydronephrosis and hydroureter decompressing. Patient tolerated oral intake. She is discharged with Lortab for pain control and to resume Keflex for UTI. Vital Signs/Physical Exam: Temp Pulse Resp BP Pulse Ox 98.4 F 55 18 136/68 98 03/09/23 12:00 03/09/23 12:00 03/09/23 13:08 03/09/23 12:00 03/09/23 13:08 General: Alert, In no apparent distress, Oriented x3 HEENT: Mucous membr. moist/pink Neck: Supple, JVD not distended Respiratory: Clear to auscultation bilaterally, Normal air movement Cardiovascular: No edema, Regular rate/rhythm, Normal S1 S2 Capillary refill: <2 Seconds Gastrointestinal: Normal bowel sounds, Soft and benign, Non-distended, No tenderness Musculoskeletal: No swelling Integumentary: No rashes, No cyanosis Neurological: Normal strength at 5/5 x4 extr Laboratory Data at Discharge: WBC 19.10 thou/uL (4.3-10.9) H 03/08/23 21:26 Hgb 14.2 g/dL (12.0-15.0) 03/08/23 21:26 Hct 42.4 % (36.0-45.0) 03/08/23 21:26 Plt Count 363 thou/uL (152-406) 03/08/23 21:26 Sodium 134 mEq/L (136-145) L 03/08/23 21:26 Potassium 4.4 mEq/L (3.5-5.1) 03/08/23 21:26 BUN 14 mg/dL (7-18) 03/08/23 21:26 Creatinine 0.73 mg/dL (0.55-1.02) 03/08/23 21:26 Glucose 177 mg/dL (74-106) H 03/08/23 21:26 Total Bilirubin 0.3 mg/dL (0.2-1.0) 03/08/23 21:26 AST 63 U/L (15-37) H 03/08/23 21:26 ALT 121 U/L (13-56) H 03/08/23 21:26 Alkaline Phosphatase 49 U/L (45-117) 03/08/23 21:26 Home Medications: Dimethyl Fumarate [Tecfidera] 240 mg PO BID 08/05/22 Lisdexamfetamine Dimesylate [Vyvanse] 20 mg PO DAILY 08/05/22 Mirabegron [Myrbetriq] 50 mg PO DAILY 08/05/22 Montelukast [Singulair*] 10 mg PO DAILY 08/05/22 Cephalexin [Keflex*] 500 mg PO Q12H #60 cap 03/08/23 Hydrocodone/APAP Soln [Lortab Solution] 10 ml PO QID PRN #473 ml 03/09/23 New Medications: Hydrocodone/APAP Soln [Lortab Solution] 10 ml PO QID PRN #473 ml PRN Reason: Pain Diet: Regular Activity: Ad dior Followup: NONE,NONE [Primary Care Provider] - Marcio Reece [ACTIVE - CAN ADMIT] - (Please call the office for appointment.) Time spent managing pt's care (in minutes): 27
[2023-03-09] MEDS ORDERED: HYDROCODONE/APAP 7.5/325 MG TAB PO ONE (15:33)
[2023-03-09] MEDS ORDERED: HYDROCODONE/APAP 7.5/325 MG TAB ONE (15:46)
[2023-03-09 16:10] VITALS: BP 117/66
[2023-03-09 16:51] VITALS: O2SAT 100
== END 2023-03-09 16:10 | disposition home or self-care (01) ==
LOC: ER 20:32 → INTOOBSV 03-09 02:19 → ERHOLD 03-09 02:19
PROVIDERS: ADMIT Internal Medicine Nephrology; ATTEND Internal Medicine
DX: T83.84XA Pain due to genitourinary prosthetic devices, implants and grafts, initial encounter (principal); N20.0 Calculus of kidney; N13.5 Crossing vessel and stricture of ureter without hydronephrosis; R11.2 Nausea with vomiting, unspecified; F90.9 Attention-deficit hyperactivity disorder, unspecified type; Z88.2 Allergy status to sulfonamides; Z88.5 Allergy status to narcotic agent; Z91.040 Latex allergy status; Z98.890 Other specified postprocedural states; Z87.440 Personal history of urinary (tract) infections
CPT/HCPCS: 96365; 85025; 36415; 80053; 74176; 96375; 99285; J1650; J2270; J2405; J0696 ×2; J7030; G0378 ×2

== ENCOUNTER 2023-03-15 07:51 | Day surgery (SDC) | payer BC ==
[2023-03-15 08:08] LABS: Specific Gravity 1.017 (1.005-1.030)
[2023-03-15] MEDS ORDERED: Ringers Lactate 1,000 ML IV ONE (08:14)
[2023-03-15] MEDS ORDERED: ONDANSETRON 4 MG/2 ML VIAL ONE (09:28)
[2023-03-15] MEDS ORDERED: ROCURONIUM 50 MG/5 ML VIAL IV ONE (09:28)
[2023-03-15] MEDS ORDERED: LIDOCAINE 1% MPF 5 ML VIAL ONE (09:28)
[2023-03-15] MEDS ORDERED: FENTANYL CITR 100 MCG/2 ML ONE (09:28)
[2023-03-15] MEDS ORDERED: propofoL 200 MG/20 ML VIAL IV ONE (09:28)
[2023-03-15] MEDS ORDERED: MIDAZOLAM HCL 2 MG/2 ML INJ ONE (09:29)
[2023-03-15] MEDS: AMPICILLIN SODIUM 2 GM/VIAL VIAL ONE ×2 (10:00→10:05)
[2023-03-15] MEDS: Gentamicin Inj 200 MG in NA CHLORIDE 0.9% 100 ML IV ONE ×2 (10:05→10:15)
[2023-03-15] MEDS ORDERED: KETOROLAC 30 MG/ML INJ ONE (10:52)
[2023-03-15] MEDS ORDERED: Mastisol Adhesive Liq ONE (10:56)
[2023-03-15] MEDS ORDERED: PHENAZOPYRIDINE 100MG TAB PO ONE (11:26)
[2023-03-15] MEDS ORDERED: HYDROCODONE/APAP 5/325 MG TAB PO PRN (11:26)
--- NOTE | 2023-03-15 11:26 | RAD REPORT ---
EXAM DESCRIPTION: RAD - Urethrocystogrphy Retrograde - 03/15/2023 11:15 am CLINICAL HISTORY: STENT EXCHANGE COMPARISON: None available. FINDINGS: Twenty Images were sent to PACS, documenting fluoroscopic utilization during a right urete ral stent exchange. No radiologist was available for the procedure, nor will any image interpretation he provided. Please refer to the procedural report for additional details. Fluoroscopy time: 15 minutes . IMPRESSION: Documentation of fluoroscopy utilization as above.
[2023-03-15] MEDS ORDERED: HYDROCODONE/APAP 5/325 MG TAB ONE (12:04)
[2023-03-15] MEDS ORDERED: OXYBUTYNIN ER 5 MG TAB PO ONE (12:04)
[2023-03-15 12:23] VITALS: BP 138/80; TEMP 97; O2SAT 97
[2023-03-16] MEDS ORDERED: OXYBUTYNIN ER 5 MG TAB PO SCH (09:00)
== END 2023-03-15 13:00 | disposition home or self-care (01) ==
LOC: OR 07:51
PROVIDERS: ATTEND Urology
PROC: 0T768DZ Dilation of Right Ureter with Intraluminal Device, Via Natural or Artificial Opening Endoscopic (ICD-10-PCS; 2023-03-15)
PROC: 0TC68ZZ Extirpation of Matter from Right Ureter, Via Natural or Artificial Opening Endoscopic (ICD-10-PCS; principal; 2023-03-15 09:00)
DX: N20.0 Calculus of kidney (principal); N39.0 Urinary tract infection, site not specified; N32.81 Overactive bladder
CPT/HCPCS: 81025; 88300; 82360; 74450; 51610; 52356; J2704; J2001; J1580; J2250; J3010; J2405; J0290; J7120

== ENCOUNTER 2023-07-07 07:42 | Day surgery (SDC) | payer BC ==
[2023-07-01 11:49] LABS: Absolute Basophils 0.1 K/uL (0-0.5); Absolute Eosinophils 0.1 K/uL (0-0.5); Absolute Lymphocytes (CBC) 1.1 K/uL (0.7-4.9); Absolute Monocytes 0.6 K/uL (0.1-1.3); Absolute Neutrophil 5.7 K/uL (1.8-8.0); Basophils % 0.7 % (0-1.3); Eosinophils % 1.3 % (0-4.4); Hematocrit 42.3 % (36.0-45.0); Hemoglobin 13.9 g/dL (12.0-15.0); Lymphocytes % 14.6 % (15.3-44.8); MCH 32.3 pg (27.0-35.0); MCHC 32.8 g/dL (32.0-36.0); MCV 98.6 fL (80-100); Monocytes % 8.1 % (3.3-12.3); Neutrophils % 75.3 % (41.7-73.7); Platelets 319 thou/uL (152-406); RBC Red Blood Cell Count 4.29 M/uL (3.86-4.86); Red Cell Distribution Width 12.7 % (12.1-15.2)
[2023-07-01 11:50] LABS: Specific Gravity 1.009 (1.005-1.030); Sqamous Epithelial <5 /HPF (None Seen); Urine Bacteria None Seen /HPF (<20); Urine Bilirubin NEGATIVE (Negative); Urine Blood Negative (Negative); Urine Clarity Turbid (Clear); Urine Color Light-Yellow (Yellow); Urine Culture Reflex Order NOT NEEDED; Urine Glucose TRACE (Negative); Urine Ketones TRACE (Negative); Urine Microscopic Reflex YN ORDER UMIC; Urine Nitrite NEGATIVE (Negative); Urine Protein NEGATIVE (Negative); Urine RBC <5 /HPF (None Seen); Urine Urobilinogen Normal (Normal); Urine WBC <5 /HPF (<5)
[2023-07-07] MEDS: SCOPOLAMINE HYDROBROMIDE PATCH TD ONE (08:18)
[2023-07-07] MEDS: Ringers Lactate 1,000 ML IV ONE ×2 (08:41→13:15)
[2023-07-07] MEDS ORDERED: MIDAZOLAM HCL 2 MG/2 ML INJ ONE (09:35)
[2023-07-07] MEDS ORDERED: ROCURONIUM 50 MG/5 ML VIAL IV ONE (09:35)
[2023-07-07] MEDS ORDERED: LIDOCAINE 2% MPF 5 ML VIAL ONE (09:35)
[2023-07-07] MEDS ORDERED: FENTANYL CITR 100 MCG/2 ML ONE (09:35)
[2023-07-07] MEDS ORDERED: propofoL 200 MG/20 ML VIAL IV ONE (09:35)
[2023-07-07] MEDS: CEFAZOLIN SODIUM 2 GM/VIAL ONE (09:39)
[2023-07-07] MEDS ORDERED: KETOROLAC 30 MG/ML INJ ONE (09:40)
[2023-07-07] MEDS ORDERED: ONDANSETRON 4 MG/2 ML VIAL ONE (09:40)
[2023-07-07] MEDS ORDERED: dexAMETHasone 10 MG/ML VIAL ONE (09:40)
[2023-07-07] MEDS: BUPIVACAINE 0.25% PF 30 ML VIAL ONE (09:44)
[2023-07-07] MEDS ORDERED: LANO/MINERAL OIL/PETRO 3.5 GM ONE (09:54)
[2023-07-07] MEDS ORDERED: HYDROMORPHONE HCL 1 MG/ML INJ ONE (10:00)
[2023-07-07] MEDS ORDERED: NS 0.9% VIAL 10 ML ONE (10:32)
[2023-07-07] MEDS ORDERED: VECURONIUM 10 MG/VIAL IV ONE (10:32)
[2023-07-07] MEDS ORDERED: NEOSTIGMINE 1 MG/ML -10 ML VIAL ONE (11:34)
[2023-07-07] MEDS ORDERED: GLYCOPYRROLATE 0.2 MG/ML SYR ONE (11:34)
[2023-07-07] MEDS ORDERED: ALBUTEROL INHALER 200 PUFF/6.7 GM IH PRN (12:04)
[2023-07-07] MEDS ORDERED: GABAPENTIN 100 MG CAP PO PRN (12:04)
[2023-07-07] MEDS ORDERED: IBUPROFEN 200 MG TAB PO PRN (12:05)
[2023-07-07] MEDS ORDERED: PROMETHAZINE 25 MG TABLET PO PRN (12:05)
[2023-07-07] MEDS ORDERED: MEPERIDINE HCL 25 MG/ML SYR IM PRN (12:05)
[2023-07-07] MEDS ORDERED: PROMETHAZINE INJ 25 MG/ML AMP IV PRN (12:05)
--- NOTE | 2023-07-07 12:08 | P.BOP ---
Preoperative diagnosis: AUB-O/A/E, pelvic pain, h/o endometriosis Postoperative diagnosis: AUB-A/O, pelvic pain, left ovarian cyst Primary procedure: TLH BS Left ovarian cystectomy Borematic Machine Operator: Yuridia Meneses Estimated blood loss: min Specimen: ut, tubes and left ovarian cyst Findings: left cyst, 4cm, no endo Anesthesia: General Complications: None Transferred to: Recovery Room Condition: Good
[2023-07-07] MEDS ORDERED: MEPERIDINE HCL 25 MG/ML SYR ONE (12:27)
[2023-07-07] MEDS ORDERED: HYDROCODONE/APAP 5/325 MG TAB ONE ×2 (13:54→18:53)
[2023-07-07] MEDS: HYDROCODONE/APAP 5/325 MG TAB PO PRN (13:58)
[2023-07-07 14:21] VITALS: BP 136/80; TEMP 97.1; O2SAT 99
[2023-07-07] MEDS ORDERED: DIMETHYL FUMARATE 240 MG PO SCH (21:00)
--- NOTE | 2023-07-07 22:30 | OP ---
Date of Procedure: 07/07/2023 Surgeon: Elza Munson MD Incoming Freight Clerk: Yuridia Cohen. Preoperative Diagnoses: AUB-L/A/E, pelvic pain, history of endometriosis. Postoperative Diagnoses: AUB-A/L, pelvic pain, left ovarian cyst. Procedures Performed: Total laparoscopic hysterectomy, bilateral salpingectomy, left ovarian cystect leena. Estimated Blood Loss: Minimal. Specimens: Uterus, tubes, left ovarian cyst. Findings: A large left ovarian cyst was noted and it was benign appearing. However, the cyst was re moved because patient has history of pelvic pain, it was 4 cm in size. History of endometriosis; how ever, no endometriosis was noted in the pelvic peritoneum and lateral leslie, posterior and anterior c ul-de-sac, broad ligament. Upper abdominal cavity was also surveyed including the right lower quadra nt, liver, and upper abdominal peritoneum on the wall. No significant bowel adhesions were noted. A ppendix was not visualized. The patient is a 43-year-old with heavy menstrual bleeding, history of endometriosis, history of Essu re for control and cycles were always somewhat irregular coming a week or two early progressive ly increasing flow and pain. Transvaginal ultrasound showed an endometrial lining of 1.3 cm. On hys teroscopy, there was no endometrial pathology noted and on the endometrial curettings, the pathology was negative for atypia or malignancy. Given the history of endometriosis, which was excised in 2006 , patient wanted to proceed with a hysterectomy, endometriosis excision if found, and ovarian preserv ation. If any ovarian cysts or masses were noted, the plan would be to excise some. There was a rig ht ovarian cyst that was present 2.5 cm, which has decreased in size, discussed about this. Description Of Procedure: After informed consent was verified in the preoperative area and questions and answers were done to the satisfaction of the patient and her who was present by her beds selvin, she was taken back to the OR. She was placed in supine fashion on the operating table. General anesthesia was given, placed in fermín santosh lithotomy position using José stirrups. Arms were tucked by the side, positioning was checked. Abdomen was prepped with ChloraPrep, vulva, vagina, and perineum with Betadine, draped in a sterile fashion. A time-out was done and 2 g of Ancef given. SCDs were started and procedure started. Speculum was placed to expose the cervix. Anterior lip was grasped with 2 Allis clamps, dilated to 1 6-Jordanian on the cervix, and a large cup uterine manipulator was introduced and fixed in place. Welch was placed to drain the bladder and attached to gravity drainage. This area was then draped. 1 cm infraumbilical curvilinear incision was made with a scalpel using the open laparoscopy technique . Fascia was incised, tagged with 0 Vicryl sutures on both ends. Peritoneum was entered sharply. H asson introduced and after adequate insufflation, upper abdominal surfaces were inspected. No eviden ce of any endometriosis. The patient was placed in Trendelenburg. Two 5 left and right lower quadra nt ports were placed under direct vision and a 10 suprapubic port. On survey of the peritoneal cavity closely, anterior, posterior broad ligaments and cul-de-sacs were viewed. Left and right lateral leslie above and below the broad ligament, no evidence of any endometr iosis. The left ovarian cyst considerably with a very thin-walled fluid-filled cyst was noted. The epithelium on the surface was smooth. It appears to be a physiological cyst. The plan was to remove the cyst, but preserve the ovarian function on both sides, especially since there was no evidence of endometriosis and the cyst did not appear to be an endometrioma. Hysterectomy was started by taking down the left tube from the distal fimbriated end. Then, utero-ov shelia ligament, round ligament were all taken down. Anterior and posterior broad ligaments were open ed up and dissected with the LigaSure and the vessels were skeletonized. Once the bladder was dissec won inferiorly below the level of the cup, the vessels were taken down with the help of the bipolar g raspers and the LigaSure. Then, the cardinal ligaments were taken down as well. On the opposite side, the round ligament was taken down, the utero-ovarian ligament was taken down, a nd the mesosalpinx dissected. Then anterior, posterior broad ligaments were opened up and anterior c onnected to the bladder flap. Bladder was dissected completely inferiorly exposing the vessels on th e anterior aspect and the posterior peritoneum taken down to the posterior cup and vessels exposed. Ureter dissected to the lateral aspect and identified on both sides. Vessels were taken down on the right side as well and the cardinal ligaments were cauterized and cut. Monopolar hook blade to perform colpotomy and the specimen was pulled out through the vagina. Vagi nal cuff was inspected and hemostasis was secured as needed with the fine tip bipolar. After thoroug h irrigation, suction vaginal tumor was placed. Simple 2 sutures were placed 1 on each side at the e nd of the cuff at the angles with 0 PDS and 3 [id number] in the middle including the posterior peritoneum entire thickness of the vaginal cuff posteriorly and anteriorly taking at least 1 cm tri n on the edges. There was excellent closure. Thorough irrigation and suction were performed. The left ovarian cyst was then picked up exposed and incised with the help of the LigaSure and the re st of the cyst wall peeled off the ovarian surface without any problems. The cyst contents down the cyst, the parts of the cyst that were removed were handed out for permanent pathology. We went to th e suprapubic port. Irrigation was performed and cauterization with the fine tip bipolar and then Int erceed was used to wrap this to prevent adhesions and exposing the raw surface of the ovary to the ne wly dissected areas. After this was completed, there was no more bleeding. All the pelvis was sucti oned out properly. Trocars were removed under direct vision. After the gas was desufflated, patient was flattened out. The umbilical incision was closed with tying the 0 Vicryl sutures to each other and a simple 0 Vicryl suture on the fascial closure for the suprapubic incision and all skin incision s closed with the help of 4-0 Monocryl interrupted. Vaginal occluder and Welch were removed. Instru ment, needle, and sponge counts were correct at the end of the case. The patient tolerated the proce dure well, recovered from anesthesia, and taken to PACU in stable condition. Her vaginal support was restored and her uterosacral ligaments were included in the closure without performing a separate ut erosacral suspension. She will follow up in 1 week for postop and 4 weeks for a vaginal check. All precautions given. SHIRLENE/CYNTHIAL Voice ID: [id number] Report ID: [id number]
[2023-07-08] MEDS ORDERED: MONTELUKAST 10 MG TAB PO SCH (09:00)
[2023-07-08] MEDS ORDERED: LISDEXAMFETAMINE DIMESYLATE 20 MG PO SCH (09:00)
[2023-07-08] MEDS ORDERED: HOME MED 1 EA UNK (Mirabegron [Myrbetriq] 50 MG Tab.Er.24h) PO SCH (09:00)
== END 2023-07-07 19:10 | disposition home or self-care (01) ==
LOC: OR 07:42
PROVIDERS: ATTEND Obstetrics & Gynecology
PROC: 0UB74ZZ Excision of Bilateral Fallopian Tubes, Percutaneous Endoscopic Approach (ICD-10-PCS; 2023-07-07)
PROC: 0UB14ZZ Excision of Left Ovary, Percutaneous Endoscopic Approach (ICD-10-PCS; 2023-07-07)
PROC: 0UT94ZZ Resection of Uterus, Percutaneous Endoscopic Approach (ICD-10-PCS; principal; 2023-07-07 09:00)
DX: N93.9 Abnormal uterine and vaginal bleeding, unspecified (principal); N80.392 Deep endometriosis of the pelvic peritoneum, other specified sites; N92.1 Excessive and frequent menstruation with irregular cycle; R10.2 Pelvic and perineal pain; D25.9 Leiomyoma of uterus, unspecified; N80.03 Adenomyosis of the uterus; N72 Inflammatory disease of cervix uteri; N83.8 Other noninflammatory disorders of ovary, fallopian tube and broad ligament; N83.12 Corpus luteum cyst of left ovary
CPT/HCPCS: 58571; 58662; 85025; 81001; 36415; 86900; 86850; 81025; 86901; 88305; 88307; A4216; J2704; J2710; J2001; J2250; J3010; J1100; J2175; J1170; J2405; J7120 ×2

== ENCOUNTER 2023-07-11 17:08 | Emergency (ER) | payer BC ==
[2023-07-11] MEDS ORDERED: NA CHLORIDE 0.9% 1,000 ML ONE (18:12)
[2023-07-11] MEDS ORDERED: ONDANSETRON 4 MG/2 ML VIAL ONE (18:12)
[2023-07-11 18:21] LABS: Absolute Basophils 0.1 K/uL (0-0.5); Absolute Eosinophils 0.2 K/uL (0-0.5); Absolute Lymphocytes (CBC) 1.7 K/uL (0.7-4.9); Absolute Monocytes 0.8 K/uL (0.1-1.3); Absolute Neutrophil 5.5 K/uL (1.8-8.0); Eosinophils % 2.7 % (0-4.4); Hematocrit 38.4 % (36.0-45.0); Hemoglobin 13.2 g/dL (12.0-15.0); Lymphocytes % 20.1 % (15.3-44.8); MCH 33.6 pg (27.0-35.0); MCHC 34.4 g/dL (32.0-36.0); MCV 97.7 fL (80-100); MPV 7.6 fL (7.6-11.3); Monocytes % 9.2 % (3.3-12.3); Nucleated Red Blood Cells % 0.1 % (0-0); Platelets 286 thou/uL (152-406); RBC Red Blood Cell Count 3.93 M/uL (3.86-4.86); Red Cell Distribution Width 12.9 % (12.1-15.2)
[2023-07-11 18:38] LABS: Albumin 3.6 g/dL (3.4-5.0); Albumin/Globulin Ratio 1.1 (1.1-1.8); Anion Gap 8.5 mEq/L (5.0-15.0); Bilirubin Total 0.4 mg/dL (0.2-1.0); Globulin 3.4 g/dL (2.3-3.5)
[2023-07-11 18:39] LABS: Potassium 4.5 mEq/L (3.5-5.1)
--- NOTE | 2023-07-11 19:33 | RAD REPORT ---
EXAM DESCRIPTION: CT - Abdomen Pelvis W Contrast - 07/11/2023 7:19 pm CLINICAL HISTORY: Abdominal pain COMPARISON: February TECHNIQUE: Computed axial tomography of the abdomen pelvis was obtained. 100 cc Isovue-300 was admin istered intravenously. Oral contrast was not requested which limits evaluation of bowel and appendix All CT scans are performed using dose optimization technique as appropriate and may include automated exposure control or mA/KV adjustment according to patient size. FINDINGS: A few areas subsegmental atelectasis within the lung bases. Mild hepatomegaly. Fatty liver. Spleen, pancreas, adrenal and kidneys appear unremarkable. There is no evidence of diverticulitis. Small umbilical hernia Recent hysterectomy. No hematoma/abscess. No adnexal mass IMPRESSION: Mild hepatomegaly with fatty infiltration Recent hysterectomy without acute abnormality
[2023-07-11] MEDS ORDERED: FENTANYL CITR 100 MCG/2 ML ONE (20:16)
[2023-07-11 20:18] LABS: Sqamous Epithelial 20-50 /HPF (None Seen); Urine Bacteria <20 /HPF (<20); Urine Bilirubin NEGATIVE (Negative); Urine Blood 2+ (Negative); Urine Clarity Extremely Turbid (Clear); Urine Color Colorless (Yellow); Urine Crystals Unidentified Few /HPF (None Seen); Urine Culture Reflex Order NOT NEEDED; Urine Glucose NEGATIVE (Negative); Urine Ketones NEGATIVE (Negative); Urine Microscopic Reflex YN ORDER UMIC; Urine Nitrite NEGATIVE (Negative); Urine Protein NEGATIVE (Negative); Urine Urobilinogen Normal (Normal)
[2023-07-11 20:19] LABS: Specific Gravity > 1.030 (1.005-1.030)
--- NOTE | 2023-07-11 20:43 | ER ---
Nurse's Notes [facility] Name: Ashely Rodriguez Age: 43 yrs Sex: Female : 1980 Arrival Date: 07/11/2023 Time: 17:08 Bed 8 Private MD: Dread Gonzalez Diagnosis: Retention of urine, unspecified Presentation: 07/10 17:36 Chief complaint: Patient states: Had hysterectomy on 07/06, performed by Dr Retana, ph has been having difficulty emptying bladder since, was seen in office today, straight cath preformed and > 800 mL urinary output, also reports no BM since . Coronavirus screen: Vaccine status: Patient reports being unvaccinated. Ebola Screen: No symptoms or risks identified at this time. Initial Sepsis Screen: Does the patient meet any 2 criteria? No. Patient's initial sepsis screen is negative. Does the patient have a suspected source of infection? No. Patient's initial sepsis screen is negative. Risk Assessment: Do you want to hurt yourself or someone else? Patient reports no desire to harm self or others. Onset of symptoms was July 11, 2023. 17:36 Method Of Arrival: Ambulatory ph 17:36 Acuity: ION 3 ph Historical: - Allergies: 17:35 Sulfa (Sulfonamide Antibiotics); ph 17:35 caffeine; ph 17:35 Latex, Natural Rubber; ph 17:35 Codeine; ph - PMHx: 17:35 Multiple Sclerosis; overactive bladder; ph - Immunization history:: Adult Immunizations unknown. - Infectious Disease History:: Denies. - Social history:: Smoking status: Reported history of juuling and/or vaping. Screenin:20 [facility] ED Fall Risk Assessment (Adult) History of falling in the last 3 months, db including since admission No falls in past 3 months (0 pts) Confusion or Disorientation No (0 pts) Intoxicated or Sedated No (0 pts) Impaired Gait No (0 pts) Mobility Assist Device Used No (0 pt) Altered Elimination No (0 pt) Score/Fall Risk Level 0 - 2 = Low Risk Oriented to surroundings, Maintained a safe environment. Abuse screen: Denies threats or abuse. Denies injuries from another. Nutritional screening: No deficits noted. Nutritional screening: No deficits noted. Tuberculosis screening: No symptoms or risk factors identified. Assessment: 17:45 Reassessment: Ro at for evaluation. ll1 18:11 Reassessment: Patient appears in no apparent distress at this time. Patient and/or db family updated on plan of care and expected duration. Pain level reassessed. Patient is alert, oriented x 3, equal unlabored respirations, skin warm/dry/pink. General: Appears in no apparent distress. comfortable, Behavior is calm, cooperative. Pain:. 18:20 Reassessment: Patient appears in no apparent distress at this time. Patient and/or db family updated on plan of care and expected duration. Pain level reassessed. Patient is alert, oriented x 3, equal unlabored respirations, skin warm/dry/pink. Pain: Complains of pain in abdomen Pain currently is 10 out of 10 on a pain scale. Neuro: Level of Consciousness is awake, alert, obeys commands, Oriented to person, place, time, situation. Respiratory: Airway is patent Respiratory effort is even, unlabored, Respiratory pattern is regular, symmetrical. GI: Abdomen is flat, non-distended, Abd is soft Abdomen is tender to palpation. Vital Signs: 17:36 BP 116 / 71; Pulse 64; Resp 18; Temp 97.6; Pulse Ox 99% on R/A; Weight 93.44 kg; Height ph 5 ft. 1 in. ; 18:58 BP 121 / 75; Pulse 70; Resp 15; Pulse Ox 99% ; ko1 19:30 BP 120 / 87; Pulse 56; Resp 17; Pulse Ox 99% ; jj7 20:30 BP 131 / 87; Pulse 62; Resp 17; Pulse Ox 99% ; Pain 5/10; jj7 21:24 BP 109 / 61; Pulse 60; Resp 19; Pulse Ox 99% ; Pain 3/10; jj7 17:36 Body Mass Index 38.92 (93.44 kg, 154.94 cm) ph 20:30 Pain Scale: Adult jj7 21:24 Pain Scale: Adult jj7 ED Course: 17:09 Patient arrived in ED. rg4 17:09 Dread Gonzalez MD is Private Physician. rg4 17:14 Ro Oreilly FNP-C is [facility]. kb 17:14 Biju Sol DO is Attending Physician. kb 17:38 Triage completed. ph 17:45 Arm band placed on Patient placed in an exam room, on a stretcher. ll1 18:02 Lakeshia Quintero, RN is Primary Nurse. db 18:07 Initial lab(s) drawn, by me, sent to lab. Inserted saline lock: 20 gauge in left db antecubital area, using aseptic technique. Blood collected. 18:20 Patient has correct armband on for positive identification. Bed in low position. Call db light in reach. Side rails up X 1. Pulse ox on. NIBP on. Warm blanket given. 19:08 Report given to KATHE. db 19:20 CT Abd/Pelvis - IV Contrast Only In Process Unspecified. EDMS 20:06 Urinalysis w/ reflexes Sent. jj7 20:31 Bladder scan completed. 704. jj7 20:43 Elza Munson MD is Referral Physician. kb 20:45 Coombs cath inserted, using sterile technique, 16 Fr., by me, balloon inflated, to jj7 gravity drainage. 21:20 COOMBS CONVERTED TO LEG BAG. jj7 21:24 No provider procedures requiring assistance completed. IV discontinued, intact, jj7 bleeding controlled, No redness/swelling at site. Pressure dressing applied. Administered Medications: 18:15 Drug: NS 0.9% IV 1000 ml IV at 1 bolus Per protocol; 1000 mL bolus Route: IV; Rate: 1 db bolus; Site: left antecubital; 21:20 Follow up: IV Status: Completed infusion jj7 18:15 Drug: Ondansetron IVP 4 mg IVP once; over 2 minutes Route: IVP; Site: left antecubital; db 21:27 Follow up: Response: No adverse reaction jj7 20:30 Drug: fentaNYL (PF) IVP 50 mcg IVP once Route: IVP; Site: left antecubital; jj7 21:24 Follow up: Response: Pain is decreased jj7 Medication: 18:20 VIS not applicable for this client. db Outcome: 20:43 Discharge ordered by . kb 21:24 Discharged to home ambulatory, with significant other, jj7 21:24 Condition: improved 21:24 Discharge instructions given to patient, Instructed on discharge instructions, follow up and referral plans. COOMBS CARE Demonstrated understanding of instructions, follow-up care, COOMBS CARE 21:28 Patient left the ED. jj7 Signatures: Dispatcher [employer] EDOK Ro Oreilly, EAR MUFF ASSEMBLER-C EAR MUFF ASSEMBLER-Ckb Jaqueline Steiner, RN RN ph Miky, Beckie oliveira4 Jorge Murrieta RN RN ll1 Grazyna Flor RN RN ko1 Félix James RN RN jj7 Lakeshia Quintero RN RN db Corrections: (The following items were deleted from the chart) 17:45 17:38 Arm band placed on Patient placed in an exam room, ph ll1
--- NOTE | 2023-07-11 20:43 | EDPHYS ---
Physician Documentation [facility] Name: Ashely Rodriguez Age: 43 yrs Sex: Female : 1980 Arrival Date: 07/11/2023 Time: 17:08 Bed 8 Private MD: Dread Gonzalez ED Physician Biju Sol HPI: 07/10 17:49 This 43 yrs old Female presents to ER via Ambulatory with complaints of Post Surgical kb Pain. 17:49 Pt is a 43 year old female who presents with abd pain, urinary retention, constipation kb and nausea that began after laparoscopic hysterectomy performed here by Dr Munson on 07/07/23. Was seen at Dr Munson's office just group captain and had a straight cath performed with >800ml output. Denies fever. . Historical: - Allergies: 17:35 Sulfa (Sulfonamide Antibiotics); ph 17:35 caffeine; ph 17:35 Latex, Natural Rubber; ph 17:35 Codeine; ph - PMHx: 17:35 Multiple Sclerosis; overactive bladder; ph - Immunization history:: Adult Immunizations unknown. - Infectious Disease History:: Denies. - Social history:: Smoking status: Reported history of juuling and/or vaping. ROS: 20:16 Constitutional: As per HPI kb Exam: 20:19 Constitutional: This is a well developed, well nourished patient who is awake, alert, kb and in no acute distress. Head/Face: Normocephalic, atraumatic. ENT: Moist Mucous membranes Cardiovascular: Regular rate Respiratory: Respirations even and unlabored. No increased work of breathing. Talking in full sentences Skin: Warm, dry with normal turgor. Normal color. MS/ Extremity: Pulses equal, no cyanosis. Neurovascular intact. Full, normal range of motion. Neuro: Awake and alert, GCS 15, oriented to person, place, time, and situation. Moves all extremities. Normal gait. 20:19 Abdomen/GI: Inspection: abdomen appears normal, Bowel sounds: normal, Palpation: soft, in all quadrants, mild abdominal tenderness, in all quadrants, Vital Signs: 17:36 BP 116 / 71; Pulse 64; Resp 18; Temp 97.6; Pulse Ox 99% on R/A; Weight 93.44 kg; Height ph 5 ft. 1 in. ; 18:58 BP 121 / 75; Pulse 70; Resp 15; Pulse Ox 99% ; ko1 19:30 BP 120 / 87; Pulse 56; Resp 17; Pulse Ox 99% ; jj7 20:30 BP 131 / 87; Pulse 62; Resp 17; Pulse Ox 99% ; Pain 5/10; jj7 21:24 BP 109 / 61; Pulse 60; Resp 19; Pulse Ox 99% ; Pain 3/10; jj7 17:36 Body Mass Index 38.92 (93.44 kg, 154.94 cm) ph 20:30 Pain Scale: Adult jj7 21:24 Pain Scale: Adult jj7 MDM: 17:15 Patient medically screened. kb 20:20 Differential diagnosis: non-specific abd pain, urinary retention, uti, postop pain, kb postop infection. Data reviewed: vital signs, nurses notes. Management of patient was discussed with the following: National Sales Associate: Dr Munson recommends follow up in office tomorrow. Pt in agreement. Counseling: I had a detailed discussion with the patient and/or guardian regarding the historical points, exam findings, and any diagnostic results supporting the discharge/admit diagnosis, lab results, radiology results, the need for outpatient follow up, an OB/Gyne specialist, to return to the emergency department if symptoms worsen or persist or if there are any questions or concerns that arise at home. 07/10 17:54 Order name: CBC with Diff; Complete Time: 18:27 kb 07/10 17:54 Order name: CMP; Complete Time: 18:42 kb 07/10 17:54 Order name: Lipase; Complete Time: 18:42 kb 07/10 17:54 Order name: Urinalysis w/ reflexes; Complete Time: 20:21 kb 07/10 20:22 Order name: Urine Culture EDMS 07/10 17:54 Order name: CT Abd/Pelvis - IV Contrast Only; Complete Time: 19:47 kb 07/10 17:54 Order name: IV Saline Lock; Complete Time: 18:20 kb 07/10 17:54 Order name: Labs collected and sent; Complete Time: 18:20 kb 07/10 19:49 Order name: Bladder Scanner: PVR; Complete Time: 20:31 kb 07/10 20:11 Order name: Welch; Complete Time: 20:46 kb Administered Medications: 18:15 Drug: NS 0.9% IV 1000 ml IV at 1 bolus Per protocol; 1000 mL bolus Route: IV; Rate: 1 db bolus; Site: left antecubital; 21:20 Follow up: IV Status: Completed infusion jj7 18:15 Drug: Ondansetron IVP 4 mg IVP once; over 2 minutes Route: IVP; Site: left antecubital; db 21:27 Follow up: Response: No adverse reaction jj7 20:30 Drug: fentaNYL (PF) IVP 50 mcg IVP once Route: IVP; Site: left antecubital; jj7 21:24 Follow up: Response: Pain is decreased jj7 Disposition: 19:04 I was immediately available on-site in the Emergency Department for consultation in the ms3 care of the patient. Disposition Summary: 07/11/23 20:43 Discharge Ordered Notes: Location: Home kb Condition: Stable kb Diagnosis - Retention of urine, unspecified kb Followup: kb - With: Emergency Department - When: As needed - Reason: Worsening of condition Followup: kb - With: Elza Munson MD - When: Tomorrow - Reason: Discharge Instructions: - Discharge Summary Sheet kb - Acute Urinary Retention, Female, [id number] kb - Indwelling Urinary Catheter Care, Adult, [id number] kb Forms: - Medication Reconciliation Form kb - Thank You Letter kb - Antibiotic Education kb - Prescription Opioid Use kb - Patient Portal Instructions kb - Leadership Thank You Letter kb Signatures: Dispatcher [employer] EDMS Ro Oreilly, STAFF EDUCATOR-C STAFF EDUCATOR-Jaqueline Amato, RN RN Biju Sol, DO DO ms3 Félix James RN RN jjLakeshia Musa RN RN db Corrections: (The following items were deleted from the chart) 17:53 17:49 Pt is a 43 year old female who presents with abd pain, urinary retention, kb constipation and nausea that began after laparoscopic hysterectomy performed here by Dr Munson on 07/07/23. kb 17:55 17:55 CBC+H.LAB.BRZ ordered. EDMS EDMS 17:55 17:55 COMPREHENSIVE METABOLIC PANEL+C.LAB.BRZ ordered. EDMS EDMS 17:55 17:55 LIPASE+C.LAB.BRZ ordered. EDMS EDMS 17:55 17:55 Urinalysis+U.LAB.BRZ ordered. EDMS EDMS 17:55 17:55 Abdomen Pelvis W Con+CT.RAD.BRZ ordered. EDMS EDMS 18:14 18:03 Abdomen Pelvis W Con+CT.RAD.BRZ ordered. EDMS EDMS
[2023-07-12 05:18] VITALS: BP 109/61; TEMP 97.6; O2SAT 99
== END 2023-07-11 21:28 | disposition home or self-care (01) ==
LOC: ER 17:08
DX: R33.9 Retention of urine, unspecified (principal); Z90.710 Acquired absence of both cervix and uterus; Z88.2 Allergy status to sulfonamides; Z88.5 Allergy status to narcotic agent; Z91.018 Allergy to other foods; Z91.040 Latex allergy status
CPT/HCPCS: 96361; 87088; 85025; 81001; 87086; 36415; 83690; 80053; 74177; 51702; 96375; 96374; 99285; Q9967; J3010; J2405; J7030